=== PATIENT | female | born 1990 | race African-American/Black ===

== ENCOUNTER 2022-03-20 19:39 | Emergency (ER) | payer OTHER ==
[~2022-03-20] VITALS: Ht 165.1 cm; Wt 60.0 kg
[2022-03-20 19:46] VITALS: BP 130/84
[2022-03-20] MEDS ORDERED: RALT400T MT (20:30)
[2022-03-20] MEDS ORDERED: EMTR1TAB11 MT (20:30)
== END 2022-03-20 21:52 | disposition home or self-care (01) ==
LOC: ER 19:39
DX: I10 Essential (primary) hypertension (principal); Z13.9 Encounter for screening, unspecified
CPT/HCPCS: 99283

== ENCOUNTER 2025-04-16 01:01 | Emergency (ER) | payer OTHER ==
[~2025-04-16] VITALS: Ht 165.1 cm; Wt 69.0 kg
[~2025-04-16 01:01] MED LIST: EMTR1TAB11 MT; RALT400T MT
[2025-04-16 01:11] VITALS: O2SAT 99
[2025-04-16] MEDS: ACETAMINOPHEN 325MG TABLET PO ONE (02:31)
[2025-04-16 03:30] LABS: HCG SCREEN NEGATIVE
[2025-04-16] MEDS ORDERED: ACET-2708 MT (04:10)
[2025-04-16 04:23] VITALS: BP 131/79; PULSE 91; RESP 16; O2SAT 100
== END 2025-04-16 04:32 | disposition home or self-care (01) ==
LOC: ER 01:01
DX: R07.81 Pleurodynia (principal); M25.521 Pain in right elbow; M25.511 Pain in right shoulder; M25.561 Pain in right knee; R51.9 Headache, unspecified; Z00.00 Encounter for general adult medical examination without abnormal findings; Z79.899 Other long term (current) drug therapy; V49.9XXA Car occupant (driver) (passenger) injured in unspecified traffic accident, initial encounter; Y93.89 Activity, other specified; Y92.410 Unspecified street and highway as the place of occurrence of the external cause; Y99.8 Other external cause status
CPT/HCPCS: 71250; 73030; 73080; 73560; 84703; 93005; 99285